=== PATIENT | male | born 1955 ===

== ENCOUNTER 2018-06-18 18:39 | Inpatient (IN) | payer OTHER ==
[~2018-06-18] VITALS: Ht 182.9 cm; Wt 109.3 kg
[~2018-06-18 18:39] MED LIST: ATOR40TA69 PO; LEVO50TA86 PO; LISI-374 PO; METF-451 PO; PRED20TA6 PO; TES75PMPPT TD
--- NOTE | 2018-06-18 18:53 | ER Report ---
History and Physical Time Seen By MD: 18:46 HPI/ROS CHIEF COMPLAINT: Numbness and tingling HISTORY OF PRESENT ILLNESS: This is a 63-year-old male presents to emergency department for numbness and tingling. Patient states that last night around 6pm he had some numbness and tingling to the posterior aspect of his right arm down the tricep into the right pinky, has not really changed however the patient states that now he has numbness to the posterior aspect of his right leg, he thinks that this could be related to his back however he was also concerned that maybe he was having a stroke, this evening he became lightheaded, not dizzy, no headaches, no chest pain or shortness breath, then drove himself to the emergency department. Patient states that he noted his blood pressure to be extremely high as well. He denies fevers or chills. No sore throats. No other focal deficits. No REVIEW OF SYSTEMS: Constitutional: No fever, no chills. Eyes: No discharge. ENT: No sore throat. Cardiovascular: No chest pain, no palpitations. Respiratory: No cough, no shortness of breath. Gastrointestinal: No abdominal pain, no vomiting. Genitourinary: No hematuria. Musculoskeletal: No back pain. Skin: No rashes. Neurological: As above. Allergies: Coded Allergies: No Known Drug Allergies (Unverified , 06/18/18) Home Meds Reported Medications Lisinopril (LISINOPRIL) 5 Mg Tablet, PO QDAY, TAB 06/18/18 Atorvastatin Calcium (LIPITOR) 10 Mg Tablet, PO QDAY, TAB 06/18/18 Metformin Hcl (METFORMIN HCL) 500 Mg Tablet, 850 MG PO QDAY, TAB 06/18/18 Prednisone 5 Mg Tab (PREDNISONE 5 MG TAB) 5 Mg Tablet, 5 MG PO QDAY, TAB 06/18/18 TESTOSTERONE 1.62% Topical Gel (ANDROGEL 1.62% Topical Gel) 1.25 Gm Gel.packet, 1 SAMM TP QDAY 06/18/18 Levothyroxine Sodium (LEVOTHYROXINE SODIUM) 100 Mcg Tablet, 150 MCG PO QDAY, TAB 06/18/18 Past Medical/Surgical History The patient has a past medical and surgical history of hypertension, hypercholesterolemia, type II diabetes, back pain, wears glasses, hypothyroidism, lichen planus, disease, cholecystectomy, back surgery, pituitary tumor excision in 1990. Reviewed Nurses Notes: Yes Constitutional Vital Sign - Last 24 Hours 06/18/18 06/18/18 06/18/18 06/18/18 18:39 18:44 18:49 18:50 Temp 98.2 Pulse ? 78 74 Resp 16 B/P (MAP) 255/130 Pulse Ox 97 97 O2 Delivery Room Air 06/18/18 06/18/18 06/18/18 06/18/18 18:54 18:59 19:00 19:04 Pulse ??? 70 65 B/P (MAP) ???/??? (1665) Pulse Ox 95 94 06/18/18 06/18/18 06/18/18 06/18/18 19:09 19:14 19:19 19:24 Pulse 65 69 65 66 Resp 8 17 Pulse Ox 94 95 97 95 06/18/18 06/18/18 06/18/18 06/18/18 19:29 19:34 19:39 19:44 Pulse 63 66 65 63 Resp 39 14 11 15 Pulse Ox 94 94 94 94 06/18/18 06/18/18 06/18/18 06/18/18 19:49 19:54 19:59 20:04 Pulse 63 59 59 58 Resp 7 15 15 14 Pulse Ox 95 92 92 94 06/18/18 06/18/18 06/18/18 06/18/18 20:04 20:09 20:14 20:19 Pulse 61 62 60 Resp 18 17 15 B/P (MAP) 180/92 (121) Pulse Ox 93 93 93 06/18/18 06/18/18 06/18/18 06/18/18 20:24 20:29 20:34 20:39 Pulse 61 ? Resp 10 Pulse Ox 93 06/18/18 06/18/18 06/18/18 06/18/18 20:44 20:49 20:54 20:59 Pulse ? 06/18/18 06/18/18 06/18/18 06/18/18 21:04 21:09 21:19 21:24 Pulse ? 57 62 Pulse Ox 95 95 06/18/18 06/18/18 06/18/18 06/18/18 21:29 21:34 21:39 21:44 Pulse 62 58 63 57 Pulse Ox 95 94 95 95 06/18/18 06/18/18 06/18/18 06/18/18 21:49 21:54 21:59 22:01 Pulse 59 59 59 B/P (MAP) 202/99 (133) Pulse Ox 94 95 94 06/18/18 06/18/18 06/18/18 06/18/18 22:04 22:09 22:14 22:18 Pulse 60 59 58 B/P (MAP) 200/105 (136) Pulse Ox 94 94 92 06/18/18 06/18/18 22:19 22:24 Pulse 59 58 Pulse Ox 95 93 Physical Exam General Appearance: The patient is alert, has no immediate need for airway protection and no signs of toxicity. Eyes: Pupils equal and round no pallor or injection. EOMs intact. 1-2 beats of lateral nystagmus bilaterally, no vertical nystagmus ENT, Mouth: Mucous membranes are moist. Respiratory: There are no retractions, lungs are clear to auscultation. Cardiovascular: Regular rate and rhythm, very distant lung sounds, no murmurs, clicks or rubs. Gastrointestinal: Abdomen is soft and non tender, no masses, bowel sounds normal. Neurological: Alert and oriented 4. Moving all extremities. Following all commands. Note NIH stroke scale below. Skin: Multiple open wounds secondary to systemic lichen planus. Musculoskeletal: Neck is supple non tender. Extremities are nontender, nonswollen and have full range of motion. DIFFERENTIAL DIAGNOSIS: After history and physical exam differential diagnosis was considered for dizziness including but not limited to peripheral and central causes of vertigo, orthostatic causes including dehydration, and blood loss. NIH Stroke Scale: 2 Level of consciousness: Alert -0 Answers both questions correctly-0 Performs both tasks correctly-0 Best Gaze: Normal-0 Visual: No visual loss-0 Facial Palsy: Minor paralysis-1 (mild droop to the corner of left side of the mouth, less prominent left puffed cheek on left.) Motor Left Arm: No drift for 10 seconds-0 Motor Right Arm: No drift for 10 seconds-0 Motor Left Leg: No drift for 5 seconds-0 Motor Right Leg: No drift for 5 seconds-0 Limb Ataxia: Absent-0 Sensory: Normal, no sensory loss-0 mild to moderate sensory loss-1 Best Language: Normal, no aphasia-0 Dysarthria: Normal-0 Extinction and Inattention: No abnormality-0 Medical Decision Making Data Points Result Diagram: 06/18/18184506/18/181845 Laboratory Hematology Test 06/18/18 18:46 06/18/18 19:17 06/18/18 22:17 Red Blood Count 4.85 M/uL (4.00-5.60) Mean Corpuscular Volume 88.7 fL (80.0-96.0) Mean Corpuscular Hemoglobin 30.4 pg (26.0-33.0) Mean Corpuscular Hemoglobin Concent 34.3 g/dL (32.0-36.0) Red Cell Distribution Width 15.5 % (11.5-14.5) Mean Platelet Volume 9.1 fL (7.2-11.1) Neutrophils (%) (Auto) 69.1 % (39.4-72.5) Lymphocytes (%) (Auto) 19.0 % (17.6-49.6) Monocytes (%) (Auto) 6.1 % (4.1-12.4) Eosinophils (%) (Auto) 4.9 % (0.4-6.7) Basophils (%) (Auto) 0.9 % (0.3-1.4) Nucleated RBC Relative Count (auto) 0.1 /100WBC Neutrophils # (Auto) 3.7 K/uL (2.0-7.4) Lymphocytes # (Auto) 1.0 K/uL (1.3-3.6) Monocytes # (Auto) 0.3 K/uL (0.3-1.0) Eosinophils # (Auto) 0.3 K/uL (0.0-0.5) Basophils # (Auto) 0.0 K/uL (0.0-0.1) Nucleated RBC Absolute Count (auto) 0.00 K/uL Prothrombin Time 13.2 seconds (12.0-14.4) Prothromb Time International Ratio 1.00 Activated Partial Thromboplast Time 41 seconds (23-35) Sodium Level 139 mmol/L (137-145) Potassium Level 3.8 mmol/L (3.5-5.0) Chloride Level 105 mmol/L (98-107) Carbon Dioxide Level 24 mmol/L (22-30) Blood Urea Nitrogen 11 mg/dl (9-21) Creatinine 1.00 mg/dl (0.66-1.25) Glomerular Filtration Rate Calc > 60.0 Random Glucose 105 mg/dl (75-110) Calcium Level 9.0 mg/dl (8.4-10.2) Total Bilirubin 1.1 mg/dl (0.2-1.3) Aspartate Amino Transf (AST/SGOT) 44 U/L (0-35) Alanine Aminotransferase (ALT/SGPT) 27 U/L (0-56) Alkaline Phosphatase 153 U/L (0-126) Troponin I < 0.012 ng/ml Total Protein 8.0 g/dl (6.3-8.2) Albumin 4.0 g/dl (3.5-5.0) Influenza Virus Type A (PCR) Negative (NEGATIVE) Influenza Virus Type B (PCR) Negative (NEGATIVE) Whole Blood Glucose 106 mg/DL (75-110) Chemistry Test 06/18/18 18:46 06/18/18 19:17 06/18/18 22:17 White Blood Count 5.3 k/uL (4.5-11.0) Red Blood Count 4.85 M/uL (4.00-5.60) Hemoglobin 14.8 g/dL (14.0-18.0) Hematocrit 43.0 % (42.0-52.0) Mean Corpuscular Volume 88.7 fL (80.0-96.0) Mean Corpuscular Hemoglobin 30.4 pg (26.0-33.0) Mean Corpuscular Hemoglobin Concent 34.3 g/dL (32.0-36.0) Red Cell Distribution Width 15.5 % (11.5-14.5) Platelet Count 114 K/uL (150-450) Mean Platelet Volume 9.1 fL (7.2-11.1) Neutrophils (%) (Auto) 69.1 % (39.4-72.5) Lymphocytes (%) (Auto) 19.0 % (17.6-49.6) Monocytes (%) (Auto) 6.1 % (4.1-12.4) Eosinophils (%) (Auto) 4.9 % (0.4-6.7) Basophils (%) (Auto) 0.9 % (0.3-1.4) Nucleated RBC Relative Count (auto) 0.1 /100WBC Neutrophils # (Auto) 3.7 K/uL (2.0-7.4) Lymphocytes # (Auto) 1.0 K/uL (1.3-3.6) Monocytes # (Auto) 0.3 K/uL (0.3-1.0) Eosinophils # (Auto) 0.3 K/uL (0.0-0.5) Basophils # (Auto) 0.0 K/uL (0.0-0.1) Nucleated RBC Absolute Count (auto) 0.00 K/uL Prothrombin Time 13.2 seconds (12.0-14.4) Prothromb Time International Ratio 1.00 Activated Partial Thromboplast Time 41 seconds (23-35) Glomerular Filtration Rate Calc > 60.0 Calcium Level 9.0 mg/dl (8.4-10.2) Total Bilirubin 1.1 mg/dl (0.2-1.3) Aspartate Amino Transf (AST/SGOT) 44 U/L (0-35) Alanine Aminotransferase (ALT/SGPT) 27 U/L (0-56) Alkaline Phosphatase 153 U/L (0-126) Troponin I < 0.012 ng/ml Total Protein 8.0 g/dl (6.3-8.2) Albumin 4.0 g/dl (3.5-5.0) Influenza Virus Type A (PCR) Negative (NEGATIVE) Influenza Virus Type B (PCR) Negative (NEGATIVE) Whole Blood Glucose 106 mg/DL (75-110) Coagulation Test 06/18/18 18:46 Prothrombin Time 13.2 seconds Prothromb Time International Ratio 1.00 Activated Partial Thromboplast Time 41 seconds EKG/Imaging EKG Interpretation 12 lead EKG: Time of EKG 1921. Rhythm: Normal sinus rhythm, ventricular rate 62 bpm. Schuyler: normal QRS: normal ST segments: No ST depression or elevation identified, flattened T waves throughout, poor T-wave progression. No previous EKGs for comparison. Imaging Location: [facility] Patient: Celestino Conway : 1955 Visit/Account:[id number] Date of Sevice: 06/18/2018 Technique: CHEST SINGLE AP HISTORY: stroke alert COMPARISON: None available Findings: The lungs are clear. No pleural effusion or pneumothorax. The cardiomediastinal silhouette is normal. Impression: 1. No acute cardiopulmonary process. Report Dictated By: Sterling Flores DO at 06/18/2018 8:02 PM Report E-Signed By: Sterling Flores DO at 06/18/2018 8:03 PM WSN:[id number] EXAMINATION: Head CT without intravenous contrast HISTORY: Unilateral right-sided numbness. COMPARISON: None. TECHNIQUE: Contiguous axial images were obtained from the skull base to the vertex without intravenous contrast. Sagittal and coronal reformatted images are also submitted. One of the following dose optimization techniques was utilized in the performance of this exam: Automated exposure control; adjustment of the mA and/or kV according to the patient's size; or use of an iterative reconstruction technique. Specific details can be referenced in the facility's radiology CT exam operational policy. FINDINGS: Brain and intracranial structures: Ventricles and sulci are normal in size. Small hypoattenuating region in the posterior right frontal white matter. Small chronic infarcts in both cerebellar hemispheres. Partially empty sella. There is calcification in the left side of the sella. No midline shift, acute hemorrhage, mass, or evidence of acute infarct. Vessels: Calcified plaque of the carotid siphons. Calvarium / scalp: Negative. Skull base / visualized face: Negative. 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 Mild mucosal thickening in the sphenoid sinuses. Sphenoidotomy in the anterior wall of the left sphenoid sinus. Mild mucosal thickening in the maxillary sinuses and ethmoid air cells. IMPRESSION: No acute intracranial hemorrhage or evidence of acute infarct. Small chronic infarcts in the cerebellum. Small hypoattenuating region in the posterior right frontal white matter, probably chronic small vessel ischemic changes. These findings on the noncontrast head CT were discussed with YOLANDA FRANK at 06/18/2018 7:10 PM. Report Dictated By: Rogelio Blanco MD at 06/18/2018 7:04 PM Report E-Signed By: Rogelio Blanco MD at 06/18/2018 7:15 PM WSN:[id number] ED Course/Re-evaluation Clinical Indication for ER IV: Hydration, IV Access ED Course The patient was admitted to room. A history and physical were obtained. Differential diagnoses were considered. An IV was started. A CBC, CMP were obtained. A CT of the head was negative for an acute intracranial abnormality. CBC unremarkable, chemistry showing AST 44, alk phosphatase 153, negative troponin, INR 1.0, negative influenza. With the negative head CT, I reviewed this with patient I did tell him that the next step would be an MRI, patient was agreeable. The patient's initial blood pressure on arrival was 255/130, he was given 20 mg of IV labetalol there was an improvement of his blood pressure, by manual blood pressure. The patient's blood pressure began to increase again, 205 systolic, patient was given a note her 20 mg of IV labetalol, blood pressure did come down to 186/84. MRI, MRA was obtained, negative MRA, MRI showing an acute infarct in the left side of the moment [place], mild chronic small vessel ischemic changes in the central white matter, small chronic infarcts in the cerebellum. I did review the results with the patient. I also discussed the findings with the neurologist at [facility], Dr. Torre as noted below, no need for transfer at this time, I also spoke with Dr. ho marks, the hospitalist on-call he's accepted the patient into the hospitalist services, patient will be admitted to [facility] telemetry. The patient was agreeable with this plan. Patient had no changes in his symptomatology. The NIH stroke score was a 2. 06/18/2018 10:25:05 pm I did speak with Dr. Torre, the neurologist on-call, regarding the patient's case we discussed the patient's symptoms, the start of his symptoms were over 24 hours ago, he did not feel that the patient would be of any benefit at this time, he did however recommend an admission to the hospital for observation and to complete the stroke workup. 06/18/2018 10:35:07 pm I did speak with Dr. geoff marks, our hospitalist retail sales associate seasonal, we discussed the case, I did update him on my discussion with Dr. Torre the neurologist, he felt different an admission to our facility would be appropriate and complete the stroke workup. I reviewed the imaging results and my discussions with the neurologist as well as our hospitalist with the patient, patient is agreeable with an admission. Decision to Disposition Date: Jun 18, 2018 Decision to Disposition Time: 22:23 Depart Departure Latest Vital Signs Vital Signs Date Time Temp Pulse Resp B/P (MAP) Pulse Ox O2 Delivery O2 Flow Rate FiO2 06/18/18 22:24 58 93 06/18/18 22:18 200/105 (136) 06/18/18 20:24 10 06/18/18 18:50 98.2 Room Air Impression: Primary Impression: Stroke Condition: Improved Disposition: Admitted from ER Problem Qualifiers Primary Impression: Stroke CVA mechanism: unspecified Qualified Codes: I63.9 - Cerebral infarction, unspecified YOLANDA FRANK-KAYCE Jun 18, 2018 18:53
[2018-06-18] MEDS ORDERED: LABETALOL HCL 20 MG/4 ML SYR IV PRN (19:10)
--- NOTE | 2018-06-18 19:19 | RADIOLOGY IMAGING REPORT ---
FACILITY: [facility] PATIENT NAME: Celestino Conway : 1955 MR: [id number] V: [id number] EXAM DATE: ORDERING PHYSICIAN: YOLANDA FRANK TECHNOLOGIST: Location: [facility] [place] Patient: Celestino Conway : 1955 Visit/Account:[id number] Date of Sevice: 06/18/2018 EXAMINATION: Head CT without intravenous contrast HISTORY: Unilateral right-sided numbness. COMPARISON: None. TECHNIQUE: Contiguous axial images were obtained from the skull base to the vertex without intraven ous contrast. Sagittal and coronal reformatted images are also submitted. One of the following dose optimization techniques was utilized in the performance of this exam: Autom ated exposure control; adjustment of the mA and/or kV according to the patient's size; or use of an i terative reconstruction technique. Specific details can be referenced in the facility's radiology C T exam operational policy. FINDINGS: Brain and intracranial structures: Ventricles and sulci are normal in size. Small hypoattenuating r egion in the posterior right frontal white matter. Small chronic infarcts in both cerebellar hemisph eres. Partially empty sella. There is calcification in the left side of the sella. No midline shift, acute hemorrhage, mass, or evidence of acute infarct. Vessels: Calcified plaque of the carotid siphons. Calvarium / scalp: Negative. Skull base / visualized face: Negative. 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 Mild mucosal thickening in the sphenoid sinuses. Sphenoidotomy in the anterior wall of the left sphenoid sinus. Mild mucos al thickening in the maxillary sinuses and ethmoid air cells. IMPRESSION: No acute intracranial hemorrhage or evidence of acute infarct. Small chronic infarcts in the cerebellum. Small hypoattenuating region in the posterior right frontal white matter, probably chronic small vess el ischemic changes. These findings on the noncontrast head CT were discussed with YOLANDA FRANK at 06/18/2018 7:10 PM. Report Dictated By: Rogelio Blanco MD at 06/18/2018 7:04 PM Report E-Signed By: Rogelio Blanco MD at 06/18/2018 7:15 PM WSN:[facility]ed[facility]
[2018-06-18] MEDS ORDERED: LABETALOL HCL 25 MG/5 ML SYRINGE IV PRN (19:25)
[2018-06-18 19:29] LABS: PLATELET COUNT, AUTOMATED 114 K/uL (150-450)
--- NOTE | 2018-06-18 20:08 | RADIOLOGY IMAGING REPORT ---
FACILITY: [facility] [place] PATIENT NAME: Celestino Conway : 1955 MR: [id number] V: [id number] EXAM DATE: ORDERING PHYSICIAN: YOLANDA FRANK TECHNOLOGIST: Location: [facility] [place] Patient: Celestino Conway : 1955 Visit/Account:[id number] Date of Sevice: 06/18/2018 Technique: CHEST SINGLE AP HISTORY: stroke alert COMPARISON: None available Findings: The lungs are clear. No pleural effusion or pneumothorax. The cardiomediastinal silhouett e is normal. Impression: 1. No acute cardiopulmonary process. Report Dictated By: Sterling Flores DO at 06/18/2018 8:02 PM Report E-Signed By: Sterling Flores DO at 06/18/2018 8:03 PM WSN:[id number]
[2018-06-18] MEDS ORDERED: PRE5 PO (20:19)
[2018-06-18] MEDS ORDERED: LEVO-3 PO (20:19)
[2018-06-18] MEDS ORDERED: TEST1.25 TP (20:19)
[2018-06-18] MEDS ORDERED: METF-450 PO (20:19)
[2018-06-18] MEDS ORDERED: ATOR10TA24 PO (20:19)
[2018-06-18] MEDS ORDERED: LISI5TAB25 PO (20:20)
--- NOTE | 2018-06-18 20:27 | EKG ---
FACILITY: [facility] PATIENT NAME: MARGARET HYATT : [id number] MR: [id number] V: [id number] EXAM DATE: ORDERING PHYSICIAN: YOLANDA FRANK TECHNOLOGIST: ADARSH Test Reason : STROKE ALERT Blood Pressure : / mmHG Vent. Rate : 062 BPM Atrial Rate : 062 BPM P-R Int : 184 ms QRS Dur : 102 ms QT Int : 476 ms P-R-T Axes : 030 -10 069 degrees QTc Int : 483 ms Normal sinus rhythm Anteroseptal infarct , age undetermined Abnormal ECG No previous ECGs available Confirmed by Trevon Aguilar ([id number]) on 06/18/2018 10:49:56 PM Referred By: Confirmed By:Trevon Castrejon
--- NOTE | 2018-06-18 21:59 | RADIOLOGY IMAGING REPORT ---
[place] [facility] [place] Celestino Conway : 1955 MR: [id number] V: [id number] EXAM DATE: ORDERING PHYSICIAN: YOLANDA FRANK TECHNOLOGIST: Location: [facility] [place] Patient: Celestino Conway : 1955 Visit/Account:[id number] Date of Sevice: 06/18/2018 EXAMINATION: Brain MRI without IV contrast HISTORY: Right-sided of body numbness and tingling. COMPARISON: CT of the head from the same day. TECHNIQUE: Multi-planar, multi-sequence brain MRI was performed without IV contrast administration. FINDINGS: Brain and other intracranial structures: There is an acute infarct in the left side of the medulla. Ventricles and sulci are normal in size. There are patchy T2 hyperintense foci scattered within the peripheral and deep cerebral white matter. Small chronic infarcts in the cerebellum. Partially empt y sella. No midline shift, mass, or hemorrhage. Calvarium / scalp: Negative. Skull base: Negative. Visualized sinuses / orbits: Mild mucosal thickening in the paranasal sinuses. IMPRESSION: Acute infarct in the left side of the medulla. Mild chronic small vessel ischemic changes in the cerebral white matter. Small chronic infarcts in the cerebellum. These findings were discussed with YOLANDA FRANK at 06/18/2018 9:50 PM. Report Dictated By: Rogelio Blanco MD at 06/18/2018 9:47 PM Report E-Signed By: Rogelio Blanco MD at 06/18/2018 9:55 PM WSN:[id number]
--- NOTE | 2018-06-18 22:03 | RADIOLOGY IMAGING REPORT ---
FACILITY: [facility] PATIENT NAME: Celestino Conway : 1955 MR: [id number] V: [id number] EXAM DATE: ORDERING PHYSICIAN: YOLANDA FRANK TECHNOLOGIST: [place] [facility] [place] Celestino [place] : 1955 Visit/Account:[id number] Date of Sevice: 06/18/2018 EXAMINATION: MRA of the [place] HISTORY: Stroke. Right-sided body of body with numbness and tingling. COMPARISON: MRI of the brain performed at the same time. TECHNIQUE: [id number] angiography was performed in the axial plane on the [place] without IV ruth olinium. The exam was tailored for assessment of the [place] only. FINDINGS: Carotids: Negative. Anterior/posterior communicating arteries: Negative. Anterior cerebral arteries: Negative. Middle cerebral arteries: Negative. Posterior cerebral arteries: Negative. Intracranial vertebral arteries: Negative. Basilar artery: Negative. PICA/AICA/SCA: Negative. IMPRESSION: Normal MRA of the [place] without evidence of intracranial aneurysm. Report Dictated By: Rogelio Blanco MD at 06/18/2018 9:55 PM Report E-Signed By: Rogelio Blanco MD at 06/18/2018 10:00 PM WSN:[email or web address]
[2018-06-18] MEDS ORDERED: LABETALOL HCL 20 MG/4 ML SYR IVP ONE (22:05)
[2018-06-18] MEDS ORDERED: hydrALAZINE HCL 20 MG/ML VIAL IVP PRN (23:05)
[2018-06-18] MEDS ORDERED: INFLUENZA VIRUS VAC 0.5ML SYR IM ONLY ONE (23:05)
[2018-06-18 23:06] VITALS: BP 234/103
[2018-06-18 23:30] VITALS: BP 242/102
[2018-06-18] MEDS: ASPIRIN 325 MG TAB PO SCH (23:32)
[2018-06-19] VITALS (9 sets, daily range): BP systolic 165–212; BP diastolic 68–94; Ht 182.9 cm; Wt 109.3 kg
--- NOTE | 2018-06-19 00:35 | History & Physical ---
History of Present Illness Chief Complaint R arm paresthesia History of Present Illness 63M presented after noting R UE paresthesia. PMHx significant for HTN, DM, pituitary apoplexy, lichen planus. Reports 6pm on Monday noted R arm numbness. This progressed to R leg numbness today and he felt unsteady on his feet. [facility] work up included negative CT and CXR. 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 Admitted for furhter work up and evaluation by therapies. He is a smoker continues to smoke 1ppd and is non-adherent to his medications. History Problems: (1) HTN (hypertension) (2) DM (diabetes mellitus) (3) Lichen planus (4) Pituitary apoplexy Home Meds Reported Medications Lisinopril (LISINOPRIL) 5 Mg Tablet, PO QDAY, TAB 06/18/18 Atorvastatin Calcium (LIPITOR) 10 Mg Tablet, PO QDAY, TAB 06/18/18 Metformin Hcl (METFORMIN HCL) 500 Mg Tablet, 850 MG PO QDAY, TAB 06/18/18 Prednisone 5 Mg Tab (PREDNISONE 5 MG TAB) 5 Mg Tablet, 5 MG PO QDAY, TAB 06/18/18 TESTOSTERONE 1.62% Topical Gel (ANDROGEL 1.62% Topical Gel) 1.25 Gm Gel.packet, 1 SAMM TP QDAY 06/18/18 Levothyroxine Sodium (LEVOTHYROXINE SODIUM) 100 Mcg Tablet, 150 MCG PO QDAY, TAB 06/18/18 Allergies: Coded Allergies: No Known Drug Allergies (Unverified , 06/18/18) Review of Systems Neurological: Other (R paresthesia, unsteadiness) Gastrointestinal: No Nausea, No Vomiting Exam Vital Signs Vital Signs Date Time Temp Pulse Resp B/P (MAP) Pulse Ox O2 Delivery O2 Flow Rate FiO2 06/18/18 22:24 58 93 06/18/18 22:18 200/105 (136) 06/18/18 20:24 10 06/18/18 18:50 98.2 Room Air General Appearance: Alert, Awake, No Acute Distress, Afebrile Neuro: No Gross deficits (CN 2-12 intact, no cerebellar signs, muscle strength 5/5 all extremities, R sided paresthesia) Cardiovascular: Normal Rhythm & Peripheral Pulses Respiratory: No Respiratory Distress GI: Abd Soft and Non-Tender Musculoskeletal: No Weakness/Pain Extremities: Soft and Non Tender, Warm, Pulses, Perfused; No Edema Integumentary: Other (sclerotic areas on b/l UE) Medical Decision Making Data Points Result Diagram: 06/18/18184506/18/181845 EKG / Imaging EKG Interpretation NSR Monitor Interpretation: Normal Sinus Rhythm Assessment and Plan Problems: (1) Acute ischemic stroke Assessment & Plan: NIH = 2. 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 MRA negative for aneurysm. Lipids, ECHO, carotid Doppler, PT/OT/ST evaluations ordered. Begin simvastatin, 325 ASA will need to be on 81mg ASA on discharge unless other etiology found. (2) HTN (hypertension) Assessment & Plan: Chronic, uncontrolled. Will use PRN hydralazine for BP > 220 systolic during permissive hypertension phase. Likely needs chronic treatment going forward. (3) DM (diabetes mellitus) Assessment & Plan: Poorly controlled per patient, A1C ordered. (4) Pituitary apoplexy Assessment & Plan: On replacement therapy with prednisone 5mg, AndroGel, levothyroxine. Will continue prednisone and levothyroxine, hold AndroGel while inpatient. (5) Tobacco abuse Assessment & Plan: Recommend cessation and control of glucose as his most easily changed risk factors. He voiced understanding. Venous Thromboembolism Antithrombotics Is Pt On Any Antithrombotics?: Yes Exam Sepsis Risk: No Definite Risk DE LOS SANTOS LEEROY CORONA DO Jun 19, 2018 00:35
[2018-06-19 06:25] LABS: PLATELET COUNT, AUTOMATED 82 K/uL (150-450)
[2018-06-19 06:37] LABS: LDL CHOLESTEROL 121 mg/dl
[2018-06-19] MEDS: LEVOTHYROXINE SOD 0.150 MG TAB PO SCH (08:18)
[2018-06-19] MEDS: predniSONE 5 MG TAB PO SCH (08:18)
[2018-06-19] MEDS ORDERED: ENOXAPARIN 40 MG/0.4ML SYR SC SCH (09:00)
[2018-06-19] MEDS ORDERED: LISINOPRIL 20 MG TAB PO SCH ×3 (09:00→10:27)
--- NOTE | 2018-06-19 09:12 | NUR ---
Physical Therapy Impression PT/OT co demetrius complete. Pt reports that he lives alone in [place] with all needs on one level. Carrie for bed mobility, Carrie/SBA for transfers. Ambulation completed with and without RW. Pt with moderate path deviation and poor dynamic balance demonstrated without AD, this improved with use of RW. PT strongly recommended that pt consider use of RW upon d/c, he reports that his home is very small and plans to hold onto furniture to stabilize himself. He may benefit from trial with SPC prior to d/c, rec OP PT services at d/c. Physical Therapy Goals 1: Pt to complete transfers with Carrie 2: Pt to ambulate 200' with Carrie and least restrictive AD Patient's Goals
[2018-06-19] MEDS: ASPIRIN 325 MG TAB PO SCH (09:46)
[2018-06-19] MEDS: metFORMIN HCL 850 MG TAB PO SCH (09:46)
--- NOTE | 2018-06-19 10:19 | NUR ---
Occupational Therapy Impression Initial OT/PT evaluation. (I) bed mobility. (I) LB dressing. Mod (I) ambulation with and without RW. Pts primary deficits include decreased balance and continued paresthesia in R UE. Educated on process for obtaining a referral for outpatient services if desired. Pt verbalized understanding and reports no further questions or concerns with discharge home. Pt safe for discharge when medically appropriate. Occupational Therapy Goals Patient's Goal
--- NOTE | 2018-06-19 10:54 | Hospitalist Progress Note ---
Subjective Progress Notes Subjective This patient was admitted for an acute stroke. He had no acute changes overnight. Patient Complains of: Cardiovascular: No: Chest Pain Respiratory: No: Shortness of Breath Physical Exam Vital Signs Date Time Temp Pulse Resp B/P (MAP) Pulse Ox O2 Delivery O2 Flow Rate FiO2 06/19/18 08:10 98.7 63 18 210/68 (115) 94 Room Air Intake and Output 06/19/18 07:00 Intake Total 600 ml Balance 600 ml Intake Oral 600 ml # Voids 2 Neuro: No Gross deficits Cardiovascular: Regular Rate and Rhythm Respiratory: Clear to Auscultation Extremities: No Edema Result Diagram: 06/19/18 0530 06/19/18 05 Monitor Interpretation: Normal Sinus Rhythm Assessment and Plan Problems: (1) Acute ischemic stroke Assessment & Plan: He presented with paraesthesia of the right arm and leg. A CT scan an old cerebellar stroke and old ischemic changes in the right frontal lobe. An MRI did show an acute stroke in the left medulla. His [place] of [place] was reported to be normal. He has been started on aspirin. His blood pressure has been elevated, but he only required one dose of Hydralazine. We have started him back on his home dose of lisinopril. An echocardiogram and carotid ultrasound are pending for today. (2) HTN (hypertension) Assessment & Plan: We have restarted his lisinopril today. Hydralazine is ordered as needed. (3) DM (diabetes mellitus) Assessment & Plan: He reports that he is supposed to be taking metformin, but hasn't been compliant. His sugars have not been elevated here. (4) Pituitary apoplexy Assessment & Plan: On replacement therapy with prednisone 5mg, AndroGel, and levothyroxine. (5) Tobacco abuse Assessment & Plan: Recommend cessation and control of glucose as his most easily changed risk factors. He voiced understanding. Exam Sepsis Risk: No Definite Risk Problem Qualifiers (1) DM (diabetes mellitus): Diabetes mellitus type: type 2 MARGARET MCALLISTER DO Jun 19, 2018 10:54
--- NOTE | 2018-06-19 13:58 | RADIOLOGY IMAGING REPORT ---
FACILITY: [facility] PATIENT NAME: Celestino Conway : 1955 MR: [id number] V: [id number] EXAM DATE: ORDERING PHYSICIAN: LEEROY CORONA TECHNOLOGIST: Location: [facility] Patient: Celestino Conway : 1955 Visit/Account:[id number] Date of Sevice: 06/18/2018 CAROTID HISTORY: Recent infarct of the left medulla COMPARISON: None. FINDINGS: Grayscale, duplex and color Doppler interrogation of the extracranial carotid and vertebral arteries was performed bilateral. On the right, peak systolic velocities within the common and internal carotid arteries are 95 and 114 cm/sec respectively. There is a small to moderate amount of fibrofatty plaque present at the caroti d bulb. Doppler waveforms are within normal limits.. Antegrade flow within the common, internal and external carotid arteries as well as vertebral artery. ICA/CCA ratio 1.2. On the left, peak systolic velocities within the common and internal carotid arteries are 104 and 79 cm/sec respectively. Minimal plaque formation is present at the carotid bulb. Doppler waveforms are within normal limits.. Antegrade flow within the common, internal and external carotid arteries as well as vertebral artery. ICA/CCA ratio 0.8. IMPRESSION: Mild bilateral carotid bulb plaque is present right slightly greater than left. No hemodynamically s ignificant stenosis is identified however. Velocity criteria are extrapolated from diameter data as defined by the Society of Radiologists in Ul trasound Consensus Conference Radiology 2003; 229;340-346 Report Dictated By: Christofer Pierre at 06/19/2018 1:36 PM Report E-Signed By: Christofer Pierre at 06/19/2018 1:54 PM WSN:HAIDER
--- NOTE | 2018-06-19 14:49 | NUR ---
ST Evaluation Cognitive linguistic status is WFL. No significant swallowing deficits noted. Pt with c/o globus immediately after onset of CVA symptoms; however, reports this has resolved. No dysphagia noted at the bedside. Further ST interventions are not indicated at this time. Thank you for this referral.
--- NOTE | 2018-06-19 14:59 | SPEECH INITIAL EVALUATION ---
INITIAL SPEECH THERAPY EVALUATION REPORT Cognitive Communication Assessment Patient Name: Celestino Conway Date of Evaluation: 06/19/18 Patient : [birth year] Clinician: Saira Kunz M.S., CCC-ERECTING ENGINEER Treatment Dx: WNL; no cognitive linguistic deficits or ongoing dysphagia. BACKGROUND The patient is a 63 year old male admitted to [facility] on 06/18/18 with R UE paresthesia. MRI revealed acute L medullary stroke, and chronic cerebellar strokes. Pt was referred for ST evaluation to analyze cognitive communicative status and possible dysphagia s/p acute CVA. Primary Medical Diagnosis: acute ischemic stroke Past Medical Hx: HTN, DM Pain Scale (0-10): patient w/ no reports of pain. LOC / Participation: alert, cooperative Functional Communication Deficits impact swallow function/safety, or response to therapy: No DYSPHAGIA ASSESSMENT Sialorrhea: No Xerostomia: No Supplemental Oxygen Use: No COPD Dx: No Pain with Swallow: Denies Pt was seen at the bedside for clinical swallowing assessment. Edentulous with upper dentures in place. Administered PO trials of thin liquids via cup and straw, in addition to regular solids. All trials were tolerated with no signs of aspiration, no indication of oral or pharyngeal dysphagia. The pt reports globus sensation immediately following onset of CVA symptoms; however, he states this has resolved. Did not endorse any globus or difficulty clearing pharynx during bedside assessment. Pt was instructed to monitor any potential changes, and to alert RN/MD accordingly. RUBI: Level 6: Aspiration Risk: Low risk. RECOMMENDATIONS 1. Diet: regular solids, thin liquids, avoid problematic foods. 2. Medications: whole, with thin liquids 3. Compensatory Techniques: ensure upright positioning during PO intake, monitor potential changes in swallow status, recurrence of globus/difficulty clearing pharynx. COGNITIVE LINGUISTIC ASSESSMENT Pt also seen at the bedside for cognitive linguistic analysis using the Gilbert Cognitive Assessment, (Version 7.3) paired with informal evaluation procedures. The pt obtained a score of 29/30, exhibiting normal cognitive linguistic functioning and appropriate capacity to return to prior living environment when medically appropriate. The pt was appropriate in conversation with good recall of hospitalization course, appropriate responses to safety scenarios, knowledge of medical history, and no evidence of expressive or receptive language deficits. Further ST interventions are not warranted. The pt was encouraged to monitor potential changes in cognitive linguistic and swallow status, and to inform RN/MD accordingly. Please call [phone] as indicated. Thank you for this referral. Saira Kunz M.S., CCC-ERECTING ENGINEER [*] MTDD
[2018-06-19] MEDS ORDERED: SIMVASTATIN 20 MG TAB PO SCH (21:00)
[2018-06-20 03:40] VITALS: BP 214/72
[2018-06-20 03:52] VITALS: BP 206/72
[2018-06-20] MEDS: LEVOTHYROXINE SOD 0.150 MG TAB PO SCH (06:13)
[2018-06-20 07:38] VITALS: BP 205/80
[2018-06-20] MEDS: metFORMIN HCL 850 MG TAB PO SCH (08:23)
[2018-06-20] MEDS: predniSONE 5 MG TAB PO SCH (08:23)
[2018-06-20] MEDS: ASPIRIN 325 MG TAB PO SCH (08:23)
[2018-06-20] MEDS ORDERED: LISINOPRIL 20 MG TAB PO SCH (09:00)
[2018-06-20 11:10] VITALS: BP 190/84
--- NOTE | 2018-06-20 12:53 | Hospitalist Depart ---
Discharge Summary Reason for Hosp/Final Diag: (1) Acute ischemic stroke Hospital Course & Plan: He presented with 24 hours of paraesthesia of the right arm and new onset in his leg. A CT scan an old cerebellar stroke and old ischemic changes in the right frontal lobe. An MRI did show an acute stroke in the left medulla. His [place] of [place] was reported to be normal. The echo had a preserved EF, no ASD, no regional wall motion abnormalities, no valvular abnormalities, no chamber enlargement. He has been started on aspirin and high dose Atorvastatin. His BP is elevated. See below. He as worked with OT/PT/ST. PT is recommending continued work as an outpatient. He has been told to stop smoking, lose weight and increase exercise. (2) HTN (hypertension) Hospital Course & Plan: He has been very elevated since admission (i.e. 190-214/68-105). Most recently he was 190/84. He admits that he wasn't taking his lisinopril regularly despite the recommendations of his PCP. He reports that his BP was usually in the low 200's. He has been increased on the lisinopril from his outpatient dose of 5mg to 20mg. We are hesitant to escalate treatment too quickly secondary to the recent stroke. He is to follow up with his PCP in 1-2 weeks to check BP. He is to get a BMP in a week. (3) DM (diabetes mellitus) Hospital Course & Plan: He reports that he is supposed to be taking metformin, but hasn't been compliant. His sugars have not been elevated here. (4) Pituitary apoplexy Hospital Course & Plan: On replacement therapy with prednisone 5mg, AndroGel, and levothyroxine. (5) Tobacco abuse Hospital Course & Plan: Recommend cessation. He voiced understanding. (6) Thrombocytopenia Status: Chronic Hospital Course & Plan: It is unknown how long he has had a low platelet count, but it is stable and not dangerously low. Recheck in a week. Departure Weight (Pounds): 241 Result Diagram: 06/19/1852906/19/18529 Item Value Date Time White Blood Count 5.3 k/uL 06/18/181845 White Blood Count 4.5 k/uL 06/19/18529 Hemoglobin 14.8 g/dL 06/18/181845 Hemoglobin 12.8 g/dL L 06/19/18 0530 Platelet Count 114 K/uL L 06/18/181845 Platelet Count 82 K/uL L 06/19/18 0530 Neutrophils (%) (Auto) 69.1 % 06/18/181845 Neutrophils (%) (Auto) 65.0 % 06/19/18 0530 Lymphocytes (%) (Auto) 19.0 % 06/18/181845 Lymphocytes (%) (Auto) 20.0 % 06/19/18 0530 Monocytes (%) (Auto) 6.1 % 06/18/181845 Monocytes (%) (Auto) 7.3 % 06/19/18 05 Prothromb Time International Ratio 1.00 06/18/181845 Total Bilirubin 1.1 mg/dl 06/18/181845 Aspartate Amino Transf (AST/SGOT) 44 U/L H 06/18/181845 Alanine Aminotransferase (ALT/SGPT) 27 U/L 06/18/181845 Alkaline Phosphatase 153 U/L H 06/18/181845 Troponin I < 0.012 ng/ml 06/18/181845 Total Bilirubin 1.2 mg/dl 06/19/18 0530 Aspartate Amino Transf (AST/SGOT) 36 U/L H 06/19/18 0530 Alanine Aminotransferase (ALT/SGPT) 24 U/L 06/19/18 0530 Alkaline Phosphatase 114 U/L 06/19/18 0530 Cholesterol Level 177 mg/dl 06/19/18 0530 LDL Cholesterol 121 mg/dl 06/19/18 0530 VLDL Cholesterol 35 mg/dl 06/19/18 0530 HDL Cholesterol 21 mg/dl 06/19/18 0530 Percent HDL Cholesterol 11.0 % 06/19/18 0530 Carbon Dioxide Level 24 mmol/L 06/18/181845 Blood Urea Nitrogen 11 mg/dl 06/18/181845 Creatinine 1.00 mg/dl 06/18/181845 Chloride Level 105 mmol/L 06/18/181845 Potassium Level 3.8 mmol/L 06/18/181845 Sodium Level 139 mmol/L 06/18/181845 Influenza Virus Type A (PCR) Negative 06/18/181916 Influenza Virus Type B (PCR) Negative 06/18/181916 Imaging 06/18/18 Echo - EF 60-70%, no regional wall motion abnormalities, no ASD evidence (see the official report for details) 06/18/18 Carotid Artery US - Mild bilateral carotid bulb plaque is present right slightly greater than left. No hemodynamically significant stenosis is identified however. 06/18/18 Brain MRA - Carotids: Negative. Anterior/posterior communicating arteries: Negative. Anterior cerebral arteries: Negative. Middle cerebral arteries: Negative. Posterior cerebral arteries: Negative. Intracranial vertebral arteries: Negative. Basilar artery: Negative. PICA/AICA/SCA: Negative. IMPRESSION: Normal MRA of the [place] of [place] without evidence of intracranial aneurysm. 06/18/18 Brain MRI - Acute infarct in the left side of the medulla. Mild chronic small vessel ischemic changes in the cerebral white matter. Small chronic infarcts in the cerebellum. 06/18/18 CXR - 1. No acute cardiopulmonary process. 06/18/[address] - No acute intracranial hemorrhage or evidence of acute infarct. Small chronic infarcts in the cerebellum. Small hypoattenuating region in the posterior right frontal white matter, probably chronic small vessel ischemic changes. EKG Vent. Rate : 062 BPM Atrial Rate : 062 BPM P-R Int : 184 ms QRS Dur : 102 ms QT Int : 476 ms P-R-T Axes : 030 -10 069 degrees QTc Int : 483 ms Normal sinus rhythm Anteroseptal infarct , age undetermined Abnormal ECG No previous ECGs available Confirmed by Trevon Aguilar ([id number]) on 06/18/2018 10:49:56 PM Condition: Improved Discharge: Home Discharge Instructions Home Meds Active Scripts Aspirin (ASPIR 81) 81 Mg Tablet.dr, 81 MG PO QDAY, #30 TAB Prov:MAYO LEWIS MD 06/20/18 Lisinopril (LISINOPRIL) 20 Mg Tablet, 20 MG PO QDAY, #30 Prov:MAYO LEWIS MD 06/20/18 Atorvastatin Calcium (LIPITOR) 40 Mg Tablet, 2 TAB PO HS, #60 TAB Prov:MAYO LEWIS MD 06/20/18 Reported Medications Metformin Hcl (METFORMIN HCL) 500 Mg Tablet, 850 MG PO QDAY, TAB 06/18/18 Prednisone 5 Mg Tab (PREDNISONE 5 MG TAB) 5 Mg Tablet, 5 MG PO QDAY, TAB 06/18/18 TESTOSTERONE 1.62% Topical Gel (ANDROGEL 1.62% Topical Gel) 1.25 Gm Gel.packet, 1 SAMM TP QDAY 06/18/18 Levothyroxine Sodium (LEVOTHYROXINE SODIUM) 100 Mcg Tablet, 150 MCG PO QDAY, TAB 06/18/18 Discontinued Reported Medications Lisinopril (LISINOPRIL) 5 Mg Tablet, PO QDAY, TAB 06/18/18 Atorvastatin Calcium (LIPITOR) 10 Mg Tablet, PO QDAY, TAB 06/18/18 Diet: Diabetic Special Instructions: Follow up with outpatient physical therapy to continue rehabilitation CBC/CMP in a week to follow up platelet count and electrolytes Follow up with your PCP in 1-2 weeks to follow up your blood pressure and symptoms from the stroke Copies to: GUZMAN VASQUEZ ; Venous Thromboembolism Antithrombotics Is Pt On Any Antithrombotics?: Yes Problem Qualifiers (1) DM (diabetes mellitus): Diabetes mellitus type: type 2 MAYO LEWIS MD Jun 20, 2018 12:53
[2018-06-20] MEDS ORDERED: ATOR40TA24 PO (12:54)
[2018-06-20] MEDS ORDERED: LISI20TA29 PO (12:54)
[2018-06-20] MEDS ORDERED: ASPI-1471 PO (12:54)
== END 2018-06-20 14:20 | disposition home or self-care (01) | DRG 66 ==
LOC: ER 19:08 → UNMERGE 22:39 → MED 22:39 → MERGE 22:39 → MED 22:40
PROVIDERS: ADMIT Internal Medicine; ATTEND Internal Medicine
DX: I63.9 Cerebral infarction, unspecified (principal); I10 Essential (primary) hypertension; E11.9 Type 2 diabetes mellitus without complications; F17.210 Nicotine dependence, cigarettes, uncomplicated; R29.702 NIHSS score 2; E23.6 Other disorders of pituitary gland; L43.9 Lichen planus, unspecified; G89.29 Other chronic pain; E03.9 Hypothyroidism, unspecified; E78.00 Pure hypercholesterolemia, unspecified; Z90.49 Acquired absence of other specified parts of digestive tract; Z79.84 Long term (current) use of oral hypoglycemic drugs
CPT/HCPCS: 36415; 36416; 70450; 70544; 70551; 71045; 82040; 82247; 82310; 82374; 82435; 82465; 82565; 82947; 82948; 83718; 83735; 84075; 84132; 84155; 84295; 84450; 84460; 84478; 84484; 84520; 85025; 85610; 85730; 87502; 92523; 93005; 93306; 93880; 97161; 97165; J0360; J7512